=== PATIENT | male | born 1960 | race Caucasian/White ===

== ENCOUNTER → 2019-04-29 | Outpatient (CLI) | payer OTHER ==
[2019-04-29 20:17] LABS: BASO # 0.1 10^3/uL (0.0-0.2); BASO % 0.5 % (0.0-1.0); EOS % 0.4 % (0.0-3.0); HEMATOCRIT 44.9 % (42.0-52.0); HEMOGLOBIN 16.1 g/dl (13.5-17.5); LYMPH # 3.3 10^3/uL (1.5-4.5); LYMPH % 29.6 % (24.0-44.0); MEAN CORPUSCULAR HEMOGLOBIN 30.6 pg (27.0-33.0); MEAN CORPUSCULAR HGB CONC 35.9 g/dl (32.0-36.5); MEAN CORPUSCULAR VOLUME 85.4 fl (80.0-96.0); MONO # 0.7 10^3/uL (0.0-0.8); MONO % 6.5 % (0.0-5.0); NEUTROPHILS # 6.7 10^3/uL (1.8-7.7); NEUTROPHILS % 60.6 % (36.0-66.0); PLATELET COUNT, AUTOMATED 208 10^3/uL (150-450); RED BLOOD COUNT 5.26 10^6/uL (4.30-6.10)
[2019-04-29 20:22] LABS: ALBUMIN 3.7 GM/DL (3.2-5.2); ALT/SGPT 106 U/L (12-78); BILIRUBIN,DIRECT 0.2 MG/DL (0.0-0.2); BILIRUBIN,TOTAL 0.7 MG/DL (0.2-1.0); CALCIUM LEVEL 9.7 MG/DL (8.5-10.1); CREATININE FOR GFR 0.82 MG/DL (0.70-1.30); GLOMERULAR FILTRATION RATE > 60.0 (>56); TOTAL PROTEIN 6.7 GM/DL (6.4-8.2)
[2019-04-29 20:30] LABS: TOTAL 25(OH) VITAMIN D 19.1 NG/ML (30.0-100.0)
[2019-05-04 00:06] LABS: ASPERGILLUS FLAVUS ABY Negative (Neg:<1:1); ASPERGILLUS FUMIGATUS ABY Negative (Neg:<1:1); ASPERGILLUS NIGER ABY Negative (Neg:<1:1)
[2019-05-05 10:22] LABS: ANGIOTENSIN 1 CONVERTING ENZYM 9 U/L (14-82); ASPERGILLUS FUMIGATUS AB Negative (Negative); AUREOBASIDIUM PULLULANS Negative (Negative); BLASTOMYCES ANTIBODY LEVEL Negative (Neg:<1:1); CRYPTOCOCCUS ANTIGEN SER Negative (Negative); HISTOPLASMOSIS ANTIBODY Negative (Neg:<1:1); MICROPOLYSPORA FAENI AB Negative (Negative); PIGEON SERUM AB Negative (Negative); THERMOACTINOMYCES SACCHARI Negative (Negative); THERMOACTINOMYCES VULGARIS Negative (Negative); VITAMIN D 1,25 DIHYDROXY 48.4 pg/mL (19.9-79.3)
== END ==
LOC: M SMT 13:13
PROVIDERS: ATTEND Internal Medicine Pulmonary Disease
DX: D86.2 Sarcoidosis of lung with sarcoidosis of lymph nodes (principal)

== ENCOUNTER → 2019-10-08 | Outpatient (REF) | payer OTHER ==
[2019-10-08 13:29] LABS: BASO # 0.1 10^3/uL (0.0-0.2); BASO % 1.1 % (0.0-1.0); EOS # 0.1 10^3/uL (0.0-0.5); EOS % 1.4 % (0.0-3.0); HEMATOCRIT 48.3 % (42.0-52.0); HEMOGLOBIN 16.3 g/dl (13.5-17.5); LYMPH # 2.7 10^3/uL (1.5-5.0); LYMPH % 30.9 % (24.0-44.0); MEAN CORPUSCULAR HGB CONC 33.7 g/dl (32.0-36.5); MEAN CORPUSCULAR VOLUME 88.8 fl (80.0-96.0); MONO # 0.6 10^3/uL (0.0-0.8); MONO % 6.8 % (0.0-5.0); NEUTROPHILS # 5.1 10^3/uL (1.5-8.5); NEUTROPHILS % 59.2 % (36.0-66.0); PLATELET COUNT, AUTOMATED 204 10^3/uL (150-450); RED BLOOD COUNT 5.44 10^6/uL (4.30-6.10); WHITE BLOOD COUNT 8.6 10^3/uL (4.0-10.0)
[2019-10-08 13:59] LABS: ALBUMIN 4.2 GM/DL (3.2-5.2); ALT/SGPT 86 U/L (12-78); BILIRUBIN,TOTAL 0.6 MG/DL (0.2-1.0); BLOOD UREA NITROGEN 13 MG/DL (7-18); CALCIUM LEVEL 9.1 MG/DL (8.5-10.1); CARBON DIOXIDE LEVEL 26 MEQ/L (21-32); CHLORIDE LEVEL 103 MEQ/L (98-107); CREATININE FOR GFR 0.83 MG/DL (0.70-1.30); GLOMERULAR FILTRATION RATE > 60.0 (>56); GLUCOSE, FASTING 129 MG/DL (70-100); POTASSIUM SERUM 3.7 MEQ/L (3.5-5.1); SODIUM LEVEL 138 MEQ/L (136-145)
[2019-10-08 15:00] LABS: TOTAL 25(OH) VITAMIN D 26.1 NG/ML (30.0-100.0)
== END ==
LOC: M LAB REF 12:48
PROVIDERS: ATTEND Internal Medicine Pulmonary Disease
DX: D86.2 Sarcoidosis of lung with sarcoidosis of lymph nodes (principal)

== ENCOUNTER → 2023-03-13 | Outpatient (CLI) | payer OTHER | LOC: M RAD 07:10 | PROVIDERS: ATTEND Internal Medicine Pulmonary Disease | DX: D86.2 Sarcoidosis of lung with sarcoidosis of lymph nodes (principal) ==

== ENCOUNTER → 2024-04-13 | Outpatient (CLI) | payer MEDICARE | LOC: M RAD 12:05 | PROVIDERS: ATTEND Internal Medicine Pulmonary Disease | DX: R91.8 Other nonspecific abnormal finding of lung field (principal) ==

== ENCOUNTER → 2024-04-17 | Outpatient (CLI) | payer MEDICARE | LOC: M EKG 10:23 | PROVIDERS: ATTEND Internal Medicine Pulmonary Disease | DX: D86.2 Sarcoidosis of lung with sarcoidosis of lymph nodes (principal); R00.1 Bradycardia, unspecified; I45.10 Unspecified right bundle-branch block ==